=== PATIENT | male | born 1950 | race Caucasian/White ===

== ENCOUNTER → 2023-08-17 07:44 | Outpatient (REF) | payer MEDICARE, OTHER, SELFPAY | LOC: EMG 07:44 | PROVIDERS: ATTENDING PHYSICIAN Orthopaedic Surgery; FAMILY PHYSICIAN Family Medicine | DX: R20.0 Anesthesia of skin (principal); G56.31 Lesion of radial nerve, right upper limb; G56.21 Lesion of ulnar nerve, right upper limb | CPT/HCPCS: 95886; 95910 ==